=== PATIENT | female | born 1935 | race Caucasian/White ===

== ENCOUNTER 2016-09-05 08:25 | Emergency (ER) | payer BC, MEDICARE, OTHER ==
[~2016-09-05] VITALS: Ht 157.5 cm; Wt 63.5 kg
[2016-09-05] MEDS ORDERED: SODIUM CHLORIDE 0.9% 1,000 ML IV ONE (08:34)
[2016-09-05 09:28] LABS: Urine Bilirubin Negative (Negative); Urine Blood 1+ /uL (Negative); Urine Color Yellow (Yellow); Urine Glucose 3+ mg/dL (Normal); Urine Ketone 2+ (Negative); Urine Nitrite Negative (Negative); Urine RBC 11 /hpf (0 - 4); Urine Squamous Epithelial Cell FEW /hpf (<5); Urine Urobilinogen Normal (Negative); Urine pH 6.5 (5.0-8.0)
[2016-09-05 09:51] LABS: Hematocrit 47.4 % (36.0-46.0); Mean Corpuscular Hemoglobin 28.4 pg (28.0-32.0); Mean Corpuscular Hgb Conc. 33.7 g/dL (32.0-36.0); Mean Corpuscular Volume 84.2 fL (80.0-100.0); Mean Platelet Volume 10.1 fL (7.4-10.4); Platelet Count (auto) 226 10^3/uL (140-450); Red Cell Distribution Width 14.9 % (11.6-16.0); SUSPECT VIEW TRANSMISSION; White Blood Cell 12.4 10^3/uL (4.4-10.8)
[2016-09-05 10:01] LABS: Alkaline Phosphatase 113 U/L (45-117); Anion Gap 12 (5-15); Aspartate Aminotransferase 16 U/L (15-37); BUN/Creatinine Ratio 14.3; Bilirubin, Total 0.7 mg/dL (0.2-1.0); Blood Urea Nitrogen 10 mg/dL (7-18); Carbon Dioxide 25 mmol/L (21-32); Chloride 102 mmol/L (98-107); GFR African American 103 mL/min; GFR Non-African American 85 mL/min; Glucose 183 mg/dL (74-106); Magnesium 2.1 mg/dL (1.6-2.6); Potassium 3.5 mmol/L (3.5-5.1); Sodium 139 mmol/L (136-145)
[2016-09-05 10:06] LABS: Metamyelocytes % 0; Myelocytes % 0; Promyelocytes % 0; Reactive Lymphocytes 0
[2016-09-05 10:07] LABS: Platelet Clumps FEW; Platelet Estimate Adequate; RBC Morphology Normal
[2016-09-05] MEDS ORDERED: SUCCINYLCHOLINE CHLORIDE 20 MG/ML 10ML VIAL IV ONE ×2 (10:07→11:00)
[2016-09-05] MEDS ORDERED: ETOMIDATE (2MG/ML) 20ML VIAL IV ONE ×2 (10:07→11:00)
[2016-09-05 10:17] LABS: INR 0.94 (0.9-1.15); Partial Thromboplastin Time 24.3 sec (22.64-33.71); Prothrombin Time 10.2 sec (9.37-12.3)
[2016-09-05] MEDS ORDERED: PROPOFOL 100 ML IV ONE (10:17)
[2016-09-05] MEDS ORDERED: MANNITOL 20% SOLN 100 gm/500ml 300 ML IV ONE (10:30)
[2016-09-05] MEDS ORDERED: PROPOFOL 10 MG/ML 20 ML IV ONE (10:45)
[2016-09-05] MEDS ORDERED: MANNITOL 20 % (20GM/100ML) 500 ML IV ONE (10:47)
[2016-09-05 11:35] LABS: Base Excess -2.2 mmol/L (-2.0-2.0); Blood 02Sat 92.5 % (96-100); Blood COHb 0.2 % (0.5-1.5); Blood MetHb 0.3 % (0.0-1.5); HCO3 21.3 mmol/L (22-26.0); HHb 7.5 % (0.0-5.0); MODE VENT - A/C; PCO2 32.9 mmHg (35.0-45.0); PCO2(T) 32.9 mmHg (35.0-45.0); Sample Type Arterial; pH 7.429 (7.350-7.450)
[2016-09-05 12:09] VITALS: BP 170/73
== END 2016-09-05 12:28 | disposition short-term general hospital (02) ==
LOC: EDBD 08:25 → ER 08:26
DX: R41.82 Altered mental status, unspecified (principal); I62.9 Nontraumatic intracranial hemorrhage, unspecified; G93.6 Cerebral edema; Z46.82 Encounter for fitting and adjustment of non-vascular catheter; Z86.73 Personal history of transient ischemic attack (TIA), and cerebral infarction without residual deficits; Z88.0 Allergy status to penicillin; E78.5 Hyperlipidemia, unspecified; Z88.6 Allergy status to analgesic agent
CPT/HCPCS: 31500; 36415; 36600; 51702; 70450; 71010; 80053; 80307; 80320; 81001; 82805; 83735; 84484; 85007; 85027; 85610; 85730; 93005; 96365; 99291; J0330; J2704; J7030